=== PATIENT | female | born 1960 | race Caucasian/White ===

== ENCOUNTER 2023-10-13 09:34 | Emergency (ER) | payer OTHER, SELFPAY ==
[2023-10-13 09:57] VITALS: BP 127/89; PULSE 98; RESP 18; TEMP 37.2; O2SAT 99
--- NOTE | 2023-10-13 10:01 | ED.GENADUL_ITS ---
Discharge Plan Disposition Patient Disposition: Home Condition: Stable Discharge Details Clinical Impression: COVID-19 Primary Care Provider: Unknown,Unknown ED Provider: Gonzales Hooks Home Meds and New Rx's Prescriptions: Continued Trintellix 5 mg tablet 5 mg PO DAILY aspirin [Adult Low Dose Aspirin] 81 mg tablet,delayed release (DR/EC) 81 mg PO DAILY Repatha Syringe 140 mg/mL syringe 140 mg subcut Q2W cksqhehrbqa-wwwuokcrf-bvq C-Mn [Glucosamine Chondroitin MaxStr] 500-400 mg capsule 1,500 cap PO HS cholecalciferol (vitamin D3) [D3 DOTS] 50 mcg (2,000 unit) tablet 50 mcg PO DAILY A Thru Z [employer] Tablet 1 tab PO HS bupropion HCl 75 mg tablet 75 mg PO TID Rx Instructions: administer 6 hours apart calcium carbonate-vitamin D3 [Calcium 600 + D(3)] 600 mg-10 mcg (400 unit) tablet 1 tab PO DAILY zinc 50 mg capsule 50 mg PO DAILY Discharge Instructions Instructions: COVID-19 ED Additional Instructions: You were seen in the emergency department for your viral syndrome with multiple complaints of sore throat, ear pain, body aches, mild cough. You are vaccinated and boosted x 4 for COVID. Your COVID PCR test was positive. Your other blood work is benign and your x-ray shows no focal pneumonia. Please take regular doses of cold medicines like Mucinex for decongestion, take Tylenol and ibuprofen, obtain an ugok-xcb-yqyuvzi SpO2 monitor, return to the ED for any oxygen readings at rest around 88% or lower. Please use therapeutic dosing of Tylenol (acetamenophen) & Advil (ibuprofen) in an alternating fashion as follows: Take 1000mg of Tylenol every 6 hours without missing doses- that is 4 times per day. [place] in between the Tylenol dosings, take 400-600mg of Advil also on a 6 hour schedule, that is also 4 times per day. The daily maximum dosing of Tylenol is 4000mg, and the daily maximum dosing of Advil is 2400mg. This is safe to do for weeks. Please note that some common cold medications & prescription pain medications may contain acetamenophen and you need to read OTC drug labels and factor that in to maximum daily dosings. HPI General Date/Time Provider Initiated Documentation: 10/13/23 10:01 . HPI Narrative: 63 year-old female presents to ED today by POV/ambulating with a chief complaint of constellation of symptoms- URI related, with onset over the past couple days. Quality described as starting as a sore throat, now having mild cough, ear pain bilaterally, sinus congestion, body aches, no radiation to shortness of breath, chest pain, intractable nausea/vomiting, vision changes, high fevers, neck stiffness, patient states she gets vertigo with infections and endorses mild dizziness. Severity is described as moderate. Palliating factors include nothing specific attempted. Provoking factors include nothing specific. Events leading up to the incident/Associated Symptoms: Patient is vaccinated and boosted for Covid, does receive yearly flu shots. Patient not anticoagulated. Related Data Home Medications Medication Instructions Recorded Confirmed aspirin 81 mg tablet,delayed 81 mg PO DAILY 10/13/23 10/13/23 release (Adult Low Dose Aspirin) bupropion HCl 75 mg tablet 75 mg PO TID 10/13/23 10/13/23 calcium carbonate 600 mg-vitamin 1 tab PO DAILY 10/13/23 10/13/23 D3 10 mcg (400 unit) tablet (Calcium 600 + D(3)) cholecalciferol (vitamin D3) 50 50 mcg PO DAILY 10/13/23 10/13/23 mcg (2,000 unit) tablet (D3 DOTS) evolocumab 140 mg/mL subcutaneous 140 mg subcut Q2W 10/13/23 10/13/23 syringe (Repatha Syringe) lzhhgcezynl-tdtrhxnhp-epd C-Mn 500 1,500 cap PO HS 10/13/23 10/13/23 mg-400 mg capsule (Glucosamine Chondroitin Maximum Strength) pwsqmjcq-azierun-jvwy-lutein 1 tab PO HS 10/13/23 10/13/23 tablet (A Thru Z [employer] tablet) vortioxetine 5 mg tablet 5 mg PO DAILY 10/13/23 10/13/23 (Trintellix) zinc 50 mg capsule 50 mg PO DAILY 10/13/23 10/13/23 Allergies Allergy/AdvReac Type Severity Reaction Status Date / Time meloxicam Allergy Intermediate Dizziness/L Verified 10/13/23 10:03 ighthead sulfamethoxazole Allergy Intermediate Other (See Verified 10/13/23 10:03 [From Bactrim] Comment) trimethoprim [From Bactrim] Allergy Intermediate Other (See Verified 10/13/23 10:03 Comment) levofloxacin [From Levaquin] Allergy Mild Diarrhea Verified 10/13/23 10:03 Pchdbtx-GKG-HmP Reductase Allergy Mild Other (See Verified 10/13/23 10:03 Inhibitor Comment) reglan Allergy Intermediate Other (See Uncoded 10/13/23 10:03 Comment) General Stated Complaint: ThroatFB NATALYA: 4 Review of Systems All systems reviewed & are unremarkable except as noted in HPI and below Exam Narrative Exam Narrative: GENERAL APPEARANCE: Well-nourished, non-toxic, awake and alert, atraumatic, no acute distress. SKIN: Warm, pink, dry, intact, without rashes/lesions/ulcerations. HEAD: Normocephalic, atraumatic, normal hair distribution for gender/age. EYES: Pupils PERRLA, EOMs intact without nystagmus, normal conjunctiva, no exudates on lids/lashes. ENT: Nares patent, no circumoral cyanosis, no facial swelling NECK: Supple, trachea midline, painless cervical ROM. LUNGS/CHEST: Lungs CTA bilaterally, non-labored respirations, normal A/P diameter, symmetrical expansion, no chest wall deformity HEART (CV/PV): Regular rate and rhythm without murmur, no peripheral edema, no JVD. ABDOMEN: Soft, non-distended, no guarding. MSK: Normal ROM, no swelling/deformity to bilateral UEs or LEs, moving all extremities without weakness, no cyanosis, spine midline without tenderness, normal curvature. NEURO: Mental Status AAOx4 - alert to person, place, time, events No facial droop, no forehead involvement. Motor: No focal weakness - strength 5/5 in bilateral UEs and LEs, proximal and distal, symmetric. Sensory: sensation intact to light touch globally. Gait normal: patient ambulated without ataxia into ED room. PSYCH: euthymic, cooperative, pleasant, appropriate speech Course Vital Signs Vital signs: Vital Signs Temperature 37.2 C 10/13/23 09:57 Respiratory Rate 98 H 10/13/23 09:57 Blood Pressure 127/89 10/13/23 09:57 Pulse Oximetry 99 10/13/23 09:57 Temperature 37.2 C 10/13/23 09:57 Respiratory Rate 98 H 10/13/23 09:57 Blood Pressure 127/89 10/13/23 09:57 Blood Pressure Position Sitting 10/13/23 09:57 Pulse Oximetry 99 10/13/23 09:57 Oxygen Delivery Method Room Air 10/13/23 09:57 Oxygen Flow Rate 0 10/13/23 09:57 Pain Level 5 10/13/23 09:57 Comment throat/ ear pain 10/13/23 09:57 Medical Decision Making This dictation utilizes [id number]-md-[id number] dictation software and may contain unedited grammatical errors. 63 year-old female presents to ED today by POV/ambulating with a chief complaint of constellation of symptoms- URI related, with onset over the past couple days. Quality described as starting as a sore throat, now having mild cough, ear pain bilaterally, sinus congestion, body aches, no radiation to shortness of breath, chest pain, intractable nausea/vomiting, vision changes, high fevers, neck stiffness, patient states she gets vertigo with infections and endorses mild dizziness. Severity is described as moderate. Palliating factors include nothing specific attempted. Provoking factors include nothing specific. Events leading up to the incident/Associated Symptoms: Patient is vaccinated and boosted for Covid, does receive yearly flu shots. Patients' medical history: Noncontributory. Family and social history: Noncontributory. Pertinent exam findings / vital signs include benign cardiopulmonary exam, mild erythema to posterior oropharynx, bilateral TMs clear and within normal limits, mild sinus tenderness, neuro intact, nontoxic. Differential / pathologies of concern include viral syndrome, upper respiratory infection. Diagnostic studies of: -CBC, CMP, lactate, CRP, rapid strep, COVID/flu/RSV PCR, XR Chest. -CBC shows no leukocytosis, low lymphocytes consistent with viral syndrome -CMP benign -Lactate within normal limits -CRP elevated to 5.8 to -Rapid strep negative -COVID positive -X-ray chest shows no acute pathology Interventions of: -recommend OTC analgesics ED Course/Assessment/Plan: 63-year-old female presents with multisystem complaint of upper respiratory infection, sinus congestion, sore throat, body aches, laboratory workup shows low lymphocytes, she is boosted X4 for COVID and positive for COVID on PCR, x- ray shows no diffuse viral pneumonia. I counseled her on low likelihood of progressing to severe disease and just taking regular doses of Tylenol and ibuprofen and staying well-hydrated. Strict return criteria for any severe increase in respiratory distress. Findings not consistent with hypoxic respiratory failure, sepsis, pneumonia, strep pharyngitis, peritonsillar abscess. Disposition of Covid-19. Patient verbalized understanding of the plan and return to ED criteria and engaged in shared decision making. Medical Records Medical records reviewed: Yes I reviewed the patient's medical records. Imaging Data Radiologic Study: Attestation: I personally reviewed and interpreted this imaging study as follows: Imaging: X-Ray Radiologist's impression: EXAM: XR CHEST 2V PA LATERAL CLINICAL HISTORY: cough TECHNIQUE: 2D digital imaging was performed. Two views. COMPARISON: No exams were available for comparison FINDINGS: HEART: Normal size. Aorta: Not dilated. PULMONARY VASCULATURE: Normal. MEDIASTINUM: Unremarkable. LUNGS: Clear. PLEURAL SPACE: No pleural effusion or pneumothorax. BONE:Unremarkable for age. SOFT TISSUES: Breast implants. IMPRESSION: No acute abnormality. Lab Data Lab results reviewed: Yes I reviewed the patient's lab results. Quality:SDOH Health Related Social Needs: No Data to Display PFSH All Active Problems (Updated 10/13/23 @ 11:24 by JOSÉ ANTONIO Green) COVID-19 (Acute) Social History Smoking risk assessment performed?: No
[2023-10-13 10:11] VITALS: BP 127/89; PULSE 98; RESP 18; TEMP 37.2; O2SAT 99
--- NOTE | 2023-10-13 10:15 | DI.RAD_ITS ---
Exam(s) XR CHEST 2V PA LATERAL EXAM: XR CHEST 2V PA LATERAL CLINICAL HISTORY: cough TECHNIQUE: 2D digital imaging was performed. Two views. COMPARISON: No exams were available for comparison FINDINGS: HEART: Normal size. Aorta: Not dilated. PULMONARY VASCULATURE: Normal. MEDIASTINUM: Unremarkable. LUNGS: Clear. PLEURAL SPACE: No pleural effusion or pneumothorax. BONE:Unremarkable for age. SOFT TISSUES: Breast implants. IMPRESSION: No acute abnormality. DATA REPOSITORY: RADIATION DOSE DELIVERED:
[2023-10-13 10:37] LABS: Lactate 0.7 mmol/L (0.6-1.4)
[2023-10-13 10:38] LABS: Abs Immature Grans 0.02 10^3/uL (0.0-0.06); Absolute Basophil Count 0.03 10^3/uL (0.0-0.2); Absolute Lymphocyte Count 0.38 10^3/uL (1.2-3.4); Absolute Monocyte Count 0.61 10^3/uL (0.1-0.8); Absolute Neutrophil Count 5.76 10^3/uL (1.2-6.7); Basophils % 0.4 %; HCT 40.3 % (36.0-46.0); HGB 12.9 g/dL (11.2-15.7); Immature Grans % 0.3 %; Lymphocytes % 5.6 %; MCH 28.2 pg (27.0-33.0); MCV 88 fL (80-95); MPV 12.2 fL (8.0-11.0); Neutrophils % 84.7 %; Platelet Count 132 10^3/uL (130-400); RBC 4.58 10^6/uL (3.93-5.22); RDW 13.8 % (11.7-14.6); RDW-SD 44.6 fL
[2023-10-13 10:55] LABS: ALT 26 U/L (14-59); AST 19 U/L (15-37); Albumin 3.9 g/dL (3.4-5.0); Alkaline Phosphatase 78 U/L (46-116); Anion Gap 10.7 mmol/L (3-11); BUN 11 mg/dL (7-18); Bilirubin, Total 0.31 mg/dL (0.2-1.0); C-Reactive Protein 5.82 mg/dL (<or=0.5); CO2 28.3 mmol/L (21.0-32.0); CREATININE 0.9 mg/dL (0.55-1.02); Calcium 8.9 mg/dL (8.5-10.1); Chloride 103 mmol/L (98-107); Estimated GFR 71.39 (mL/min/1.73m2); Glucose 116 mg/dL (74-106); Potassium 3.8 mmol/L (3.5-5.1); Sodium 142 mmol/L (136-145); Total Protein 7.5 g/dL (6.4-8.2)
[2023-10-13 11:19] LABS: Influenza A PCR Negative (Negative); Influenza B PCR Negative (Negative); RSV PCR Negative (Negative)
[2023-10-13 11:21] LABS: COVID-19 PCR Positive (Negative); Source Nasopharynx
== END 2023-10-13 12:09 | disposition home or self-care (01) ==
LOC: ER 11:53
PROVIDERS: Emergency Provider Physician Assistant
DX: J02.9 Acute pharyngitis, unspecified (principal); R53.1 Weakness; R52 Pain, unspecified; U07.1 COVID-19
CPT/HCPCS: 36415; 80053; 87637; 87880; 99284; 71046; 83605; 85025; 86140; 87081